=== PATIENT | male | born 1950 | race Caucasian/White ===

== ENCOUNTER 2025-03-19 09:20 | Day surgery (SDC) | payer MEDICARE, OTHER ==
[~2025-03-19] VITALS: Ht 175.3 cm; Wt 122.3 kg
[2025-03-19 09:42] VITALS: BP 148/89; PULSE 77; RESP 15; TEMP 97.7; O2SAT 97
[2025-03-19] MEDS ORDERED: TAMS-55 PO (09:54)
[2025-03-19] MEDS ORDERED: CARV6.2553 PO (09:54)
[2025-03-19] MEDS ORDERED: ATOR40TA72 PO (09:54)
[2025-03-19] MEDS ORDERED: METF-437 PO (09:54)
[2025-03-19] MEDS ORDERED: SOTA80TA73 PO (09:54)
[2025-03-19] MEDS ORDERED: AMLO5TAB16 PO (09:54)
[2025-03-19] MEDS ORDERED: FURO20TA4 PO (09:54)
[2025-03-19] MEDS ORDERED: APIX5TAB3 PO (09:54)
[2025-03-19] MEDS ORDERED: POTA-206 PO (09:54)
[2025-03-19] MEDS ORDERED: LOSA100T58 PO (09:54)
[2025-03-19] MEDS ORDERED: fentaNYL/PF 50MCG/1 ML 2ML syringe IV ONE (09:55)
[2025-03-19] MEDS ORDERED: MIDAZolam 1mg/ml 10ml vial IV ONE (09:55)
[2025-03-19] MEDS: normal saline 1000ml 1,000 ML IV SCH (10:25)
[2025-03-19 10:30] VITALS: RESP 15; O2SAT 96
[2025-03-19] MEDS ORDERED: fentaNYL/PF 50MCG/1 ML 2ML syringe ONE (11:53)
[2025-03-19] MEDS ORDERED: midazolam 1 mg/ML 2ml injection ONE ×2 (11:53→12:26)
[2025-03-19] MEDS ORDERED: atropine 0.1mg/ml 10ml syringe ONE (12:20)
[2025-03-19] MEDS ORDERED: amiodarone 50MG/ML inj IV ONE (12:20)
[2025-03-19 12:45] VITALS: BP 122/83; PULSE 55; RESP 15; O2SAT 97
[2025-03-19 13:00] VITALS: BP 113/75; PULSE 54; RESP 14; O2SAT 97
[2025-03-19 13:15] VITALS: BP 113/73; PULSE 52; RESP 13; O2SAT 98
--- NOTE | 2025-03-26 15:44 | PROCEDURE NOTE CC ---
Procedure Note Providers to CC ~ Description Planned Procedure Cardioversion Indications Symptomatic Atrial Fibrillation Post Operative Dx: Same Type of Anesthesia Moderate Sedation. Description It was confirmed that patient has been taking oral anticoagulation without interruption for at least 4 weeks. The appropriate time-out procedure was performed including proper identification of the patient, physician, procedure, documentation, and there were no safety issues identified. The patient participated actively in this. After sedation was achieved, the patient was placed in the supine position and hands free patches were placed on their chest in the AP-lateral position. 1 synchronized cardioversion was provided at 200 Joules with conversion to normal sinus rhythm. This was confirmed on EKG. Complication: None The patient tolerated the procedure well without complications. Late entry, date of service was March 19, 2025 PAO FINE MD March 26, 2025 15:44
== END 2025-03-19 13:30 | disposition home or self-care (01) ==
LOC: SSTAY O 09:20
PROVIDERS: ATTEND Student in an Organized Health Care Education/Training Program
DX: I48.91 Unspecified atrial fibrillation (principal); E78.5 Hyperlipidemia, unspecified; E11.9 Type 2 diabetes mellitus without complications; I11.0 Hypertensive heart disease with heart failure; I50.9 Heart failure, unspecified; Z79.899 Other long term (current) drug therapy; Z86.718 Personal history of other venous thrombosis and embolism
CPT/HCPCS: 92960; 99152; J2250; J3010; J7030; J0282; J0461